=== PATIENT | female | born 1990 | race Caucasian/White ===

== ENCOUNTER 2023-11-11 17:37 | Emergency (ER) | payer MEDICAID ==
[~2023-11-11] VITALS: Ht 157.5 cm; Wt 81.6 kg
[2023-11-11 18:16] VITALS: PULSE 84; RESP 19; TEMP 97.4; O2SAT 98
[2023-11-11] MEDS: ONDANSETRON 4 MG ODT PO ONE (18:56)
[2023-11-11] MEDS: HYDROcodone/APAP 10/325 MG 1 TAB TAB PO STA (18:59)
[2023-11-11 19:34] LABS: BASOPHILS % (AUTO) 0.4 % (0.0-2.0); EOSINOPHILS # (AUTO) 0.1 K/uL (0-0.4); EOSINOPHILS % (AUTO) 1.6 % (0.0-4.0); HEMATOCRIT 37.9 % (36-48); LYMPHOCYTES # (AUTO) 3.2 K/uL (2.5-16.5); LYMPHOCYTES % (AUTO) 39.5 % (20.5-51.1); MEAN CORPUSCULAR HEMOGLOBIN 30 pg (27-31); MEAN CORPUSCULAR HGB CONC 34 g/dL (33-37); MEAN CORPUSCULAR VOLUME 87.6 fL (80-94); MONOCYTES # (AUTO) 0.4 K/uL (0.8-1.0); MONOCYTES % (AUTO) 5.3 % (1.7-9.3); NEUTROPHILS # (AUTO) 4.3 K/uL (1.8-7.7); NEUTROPHILS % (AUTO) 53.2 % (42.2-75.2); PLATELET COUNT (AUTO) 275 K/uL (140-450); RED BLOOD CELL COUNT(AUTO) 4.33 MIL/uL (4.20-5.40); RED CELL DISTRIBUTION WIDTH 12.8 % (11.6-13.7)
[2023-11-11 19:48] LABS: ALBUMIN 3.5 g/dL (3.4-5.0); ANION GAP 10.8 (8-16); CALCIUM 9.3 mg/dL (8.5-10.1); CARBON DIOXIDE 30.9 mmol/L (21-32); CREATININE 0.8 mg/dL (0.6-1.3); POTASSIUM 3.7 mmol/L (3.5-5.1); TOTAL BILIRUBIN 0.1 mg/dL (0.0-1.0); TOTAL PROTEIN, SERUM 8.2 g/dL (6.4-8.2)
[2023-11-11] MEDS ORDERED: ONDANSETRON 4 MG/2 ML VIAL ONE (21:24)
[2023-11-11] MEDS: ONDANSETRON 4 MG/2 ML VIAL IVP ONE (21:31)
[2023-11-11] MEDS: MORPHINE SULFATE 4 MG/ML SYR IVP ONE ×2 (21:31→23:58)
[2023-11-11 21:56] LABS: BILIRUBIN,URINE NEGATIVE (NEGATIVE); BLOOD, URINE NEGATIVE (NEGATIVE); COLOR,URINE YELLOW (YELLOW); LEUKOCYTE ESTERASE ,URINE NEGATIVE (NEGATIVE); NITRITE, URINE NEGATIVE (NEGATIVE); PH,URINE 7.5 (5.0-9.0); PROTEIN,URINE TRACE (NEGATIVE); UGLUCOSE NEGATIVE (NEGATIVE); UROBILINOGEN,URINE 0.2 EU/dL (0.2 - 1)
[2023-11-11 21:57] LABS: APPEARANCE,URINE SLIGHTLY CLOUDY (CLEAR)
[2023-11-11] MEDS: CYCLOBENZAPRINE 10 MG TAB PO ONE (23:58)
[2023-11-11] MEDS: LIDOCAINE 5% 1 EA PATCH TP ONE (23:59)
[2023-11-12 07:20] VITALS: BP 91/57; PULSE 64; RESP 16; TEMP 98.3; O2SAT 14
== END 2023-11-12 07:20 | disposition short-term general hospital (02) ==
LOC: MED 17:37
DX: M25.80 Other specified joint disorders, unspecified joint (principal); M54.50 Low back pain, unspecified; R20.0 Anesthesia of skin
CPT/HCPCS: 36415; 72131; 80053; 81003; 81025; 85025; 96374; 96375; 96376; 99285; J2270; J2405; Q0162